=== PATIENT | female | born 1965 | race Caucasian/White ===

== ENCOUNTER 2024-02-11 06:13 | Day surgery (SDC) | payer OTHER, SELFPAY ==
[2024-02-11] VITALS (16 sets, daily range): BP systolic 123–182; BP diastolic 62–99; BMI 35.1
[2024-02-11] MEDS: HEPARIN 5000 UNITS SC (07:04)
[2024-02-11] MEDS: NORMOSOL-R 1000 IV ×2 (07:05→11:40)
--- NOTE | 2024-02-11 10:04 | W.SUR.PREOP ---
Pre-Operative Surgical Note
-
I have examined this patient prior to the performance of the scheduled procedure.
The patient's condition is unchanged from the time of the current History and
Physical and the patient is able to undergo the scheduled procedure.
I met with Shasta and her daughter this am 07:00am. Consents updated/confirmed procedure for mysmary bethf and Dr. Shah.
--- NOTE | 2024-02-11 10:05 | W.IMMPOSTOP ---
Surgical Immed Post Op Note
-
Primary Surgeon: Lauren Tucker DO (RA TLH BSO, washings)
Dr. Shah (robotic ICG injection of cervix, Robotic laparoscopic lymph node dissection and sentinel node biopsy bilaterally)
Gastrointestinal Technician: JAMIL Kumar
Pre-op Diagnosis: Endometrial intraepithelial neoplasia
Post-op Diagnosis: same
Procedure Performed: Robotic assisted TLH BSO, pelvic washings
(DR. Shah performed ICG injection of cervix, Robotic laparoscopic lymph node dissection and sentinel node biopsy bilaterally)-see separate dictation
Anesthesia Type: general WT Dr. Schultz
Specimen / Cultures: 1. Pelvic Washings 2. right obturator sentinel node 3. left obturator sentinel lymph node 4. uterus, cervix, bilateral fallopian tubes and bilateral ovaries
Estimated Blood Loss: 10 ml
IVF: 1100ml
Urine output 1000ml clear
Complications: none
Operative Findings: Uterus with globular morphology, normal size. Normal appearing tubes and ovaries bilaterally.
Adhesions in vicinity of Lower uterine segment
Suarez clear yellow urine.
Counts correct times 2.
Stable to recovery.
[2024-02-11] MEDS: DILAUDID 0.5 MG IV ×2 (10:25→11:21)
[2024-02-11 10:50] LABS: Hematocrit 37.7 % (37.0-47.0); Hemoglobin 12.2 g/dL (12.0-16.0)
[2024-02-11 10:59] LABS: Blood Urea Nitrogen 20 mg/dl (7-17); Calcium 8.3 mg/dl (8.4-10.2); Carbon Dioxide 23 mmol/L (22-30); Chloride 107 mmol/L (98-107); Estimated Creatinine Clearance 122 ml/min; Glucose 134 mg/dl (70-99); Potassium 4.2 mmol/L (3.5-5.1); Sodium 135 mmol/L (135-145); eGFR > 60.00
--- NOTE | 2024-02-11 12:42 | PTCARENOTE ---
Pt arrived to [facility] from PACU s/p total hysterectomy. Pt has peripad on with scant amount of blood noted. 7 lap sites all C/D/I with dermabond and INEZ. Pt states her pain is 2/10. Pt on 2L NC satting 96 %. Oriented to call cesar and room, bed
locked and in lowest position, call cesar within reach.
[2024-02-11] MEDS: TYLENOL 650 MG PO (14:30)
[2024-02-11] MEDS: ZOLOFT 25 MG PO (14:31)
[2024-02-11] MEDS: TORADOL 15 MG IV ×2 (16:25→22:15)
[2024-02-11] MEDS: LOVENOX 40 MG SC (17:23)
[2024-02-11] MEDS: NORMOSOL-R IV (18:14)
[2024-02-11] MEDS: ZOFRAN 4 MG IV (21:04)
--- NOTE | 2024-02-11 21:40 | W.PN.OBG.DWH ---
Today's Communication / Plan
-
postop pain mgmt
anticipate dc tomorrow
cbc, bmp in am
diet as til, analgesia
Assessment/Plan
-
Postop check s/p RA TLH BSO, ICG injection cervix, LND and sentinel obturator node excision b/l
Endometrial intraepithelial neoplasia
Operative findings reviewed with Shasta.
Reviewed instructions for dc tomorrow. She declined going home today. Has no one at home and concerned about being home by herself tonight. I raghav be in tomorrow am to see and plan for dc
RTO 1-[address] Shah will want to see her for postop visit as well once pathology results are back.
Discussed there is risk for endometrial cancer on final pathology approx 30-40% of patients with EIN. Will await final path.
Subjective Data
-
Postop check-late entry note-> pt seen at approx 19:00 tonight. .
Feeling well, no complaints.
Tolerating regular diet and has already voided.
Adequate pain control.
Objective Data
-
Laboratory Results
02/11/24 10:38
02/11/24 10:38
Vital Signs
Temp Pulse Resp BP Pulse Ox
98.9 F 106 18 162/86 95
02/11/24 19:54 02/11/24 19:54 02/11/24 19:54 02/11/24 19:54 02/11/24 19:54
VSS afeb
abd: soft nondistended NT
ext: SCDs on
[2024-02-12] MEDS: NORMOSOL-R IV ×2 (03:27→10:18)
--- NOTE | 2024-02-12 03:34 | DOWNTIME ---
There was a [employer] Downtime on 02/12/2024 from 0100 to 02/12/2024 at 0322. Downtime documentation of patient's care, including medication administrations, has been reconciled in the electronic record per guidelines. Refer to the
patient's paper chart under the miscellaneous tab to see printed paper medication records and downtime forms.
[2024-02-12 03:53] VITALS: BP 178/98
[2024-02-12] MEDS: TORADOL 15 MG IV ×2 (04:01→10:17)
[2024-02-12 04:10] VITALS: BP 158/88
[2024-02-12] MEDS: SYNTHROID 100 MCG PO (05:47)
[2024-02-12 06:26] LABS: % Basophils 0.1 % (0-2); % Immature Granulocytes 0.5 % (0-0.5); % Lymphocytes 9.1 % (20.5-51.1); % Monocytes 6.6 % (1.7-9.3); % Neutrophils 83.7 % (42.2-75.2); Absolute Immature Granulocytes 0.1 10^3/uL (0-0.05); Absolute Lymphocytes 1.5 10^3/uL (1.2-3.4); Absolute Monocytes 1.1 10^3/uL (0.1-0.6); Absolute Neutrophils 13.9 10^3/uL (1.4-6.5); Hematocrit 41.7 % (37.0-47.0); Hemoglobin 13.3 g/dL (12.0-16.0); Mean Corp Hgb Conc. 31.9 g/dL (33.0-37.0); Mean Corpuscular Hgb 27.8 pg (27.0-31.0); Mean Corpuscular Volume 87.1 fL (81.0-99.0); Mean Platelet Volume 10.8 fL (7.4-10.4); Nucleated Red Blood Cells % 0 %; Platelet Count 329 10^3/uL (130-400); Red Blood Cell Count 4.79 10^6/uL (4.20-5.40); Red Cell Dist. Width 14.7 % (11.5-14.5); White Blood Cell Count 16.6 10^3/uL (4.8-10.8)
[2024-02-12 06:41] LABS: Blood Urea Nitrogen 13 mg/dl (7-17); Carbon Dioxide 26 mmol/L (22-30); Chloride 101 mmol/L (98-107); Estimated Creatinine Clearance 122 ml/min; Potassium 4.3 mmol/L (3.5-5.1); Sodium 139 mmol/L (135-145)
--- NOTE | 2024-02-12 07:39 | W.DS.TRANS ---
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
-
Discharge Instructions:
Sleep Apnea Risk Low
Discharge Diagnosis/Procedures endometrial intraepithelial hyperplasia; s/p
robotic total laparoscopic hysterectomy BSO,
sentinel lymph node biopsies, pelvic washings
Diet Regular
Activity No strenuous activity
Driving Restrictions No driving for 1 week
Bathing Restrictions OK to Shower
Instructions:
Stand-Alone Forms:
Changes to Home Medications: No
Discharge Medications:
DC Medications w/original date entered in [facility]
levothyroxine 100 mcg tablet 100 mcg PO DAILY 11/07/23
multivitamin 1 tab PO DAILY 11/07/23
sertraline 25 mg tablet (Zoloft) 25 mg PO DAILY@1400 11/07/23
acetaminophen 325 mg tablet 650 mg (2 x 325 mg) PO Q4HPRN PRN mild pain #0 tabs 02/11/24
ibuprofen 600 mg tablet 600 mg PO Q6H PRN cramps #1 tab 02/11/24
oxycodone 5 mg tablet 2.5 mg (1/2 x 5 mg) PO Q4HPRN PRN moderate pain #0 tabs 02/11/24
oxycodone 5 mg tablet 5 mg PO Q4HPRN PRN severe pain when tolerating PO #10 tabs 02/11/24
Home Medication Changes
Pending Results: Yes
Additional Pending Results:
surgical pathology
Total time spent discharging patient (in min): 30
--- NOTE | 2024-02-12 07:39 | W.PN.OBG.DWH ---
Today's Communication / Plan
-
dc home today
Assessment/Plan
-
POD#1 s/p RA TLHBSO Lymph node excision
EIN-path pending
Reviewed dc instructions and restrictions, follow up 1-2 wks
Subjective Data
-
POD#1 No complaints
Feeling well
Shweta diet
voiding without difficulty
Adequate pain mgmt
no vaginal bleeding
Objective Data
-
Laboratory Results
02/12/24 04:54
02/12/24 04:54
Vital Signs
Temp Pulse Resp BP Pulse Ox
98.6 F 89 16 158/88 97
02/12/24 03:53 02/12/24 03:53 02/12/24 03:53 02/12/24 04:10 02/12/24 03:53
VSS afeb
abd: soft +bs ND/NT inc cdi
ext: no calf pain
No vaginal bleeding
[2024-02-12 07:50] VITALS: BP 149/91
--- NOTE | 2024-02-12 09:43 | CM ---
Met with patient at bedside; initial assessment completed
Pharmacy verified: [facility], [place], [place]
Patient reported that she lives in a townhouse with her 20 year old daughter; 4 steps in; 6 steps between floors; railings inside and outside; 2nd floor bathroom has tub with shower
PLOF: reports she is independent with ambulation, steps, and ADLs; drives
DME: none
SNF/Rehab/Home Care utilization history: none
Transport: daughter will provide ride home
Plan: discharge to home today without services
== END 2024-02-12 12:10 | disposition home or self-care (01) ==
LOC: SDS 06:13
PROVIDERS: ATTENDING PHYSICIAN Obstetrics & Gynecology
DX: N87.0 Mild cervical dysplasia (principal); N95.0 Postmenopausal bleeding; N80.03 Adenomyosis of the uterus; D25.9 Leiomyoma of uterus, unspecified
CPT/HCPCS: 38571; 38900; 58571; 88305; 88307; 80048; 80051; 82565; 84520; 85014; 85018; 85025; 86850; 86900; 86901; 88112; 88341; 88342; 88360

== ENCOUNTER → 2024-10-03 10:31 | Outpatient (REF) | payer OTHER, SELFPAY | LOC: WDC 10:31 | PROVIDERS: ATTENDING PHYSICIAN Obstetrics & Gynecology; FAMILY PHYSICIAN Family Medicine | DX: Z12.31 Encounter for screening mammogram for malignant neoplasm of breast (principal) | CPT/HCPCS: 77063; 77067 ==